=== PATIENT | female | born 1980 | race African-American/Black ===

== ENCOUNTER 2017-08-15 13:42 | Emergency (ER) | payer MEDICAID ==
[~2017-08-15] VITALS: Ht 154.9 cm; Wt 78.9 kg
[2017-08-15] MEDS ORDERED: NOVOLIN 70100 UNIT/1 SUBQ (14:07)
--- NOTE | 2017-08-15 14:34 | Emergency Room Report ---
History of Present Illness General Chief Complaint: Dizziness Source: Patient Present Illness HPI 37-year-old female known insulin-dependent diabetic presents with weakness and dizziness for one day patient noncompliant with insulin and metformin Patient endorsed only weakness to our and on triage however to me patient complains of cough for 2 days, chest pain, abdominal pain - states all these additional complaints started after she had I&D of abscess earlier in week Denies vomiting, diarrhea, fever or chills Allergies: Coded Allergies: No Known Allergies (Unverified , 08/15/17) Patient History Past Medical History: DM Past Surgical History: none Pertinent Family History: none Social History: Denies: smoking, alcohol use, drug use Now: No Immunizations: UTD Reviewed Nursing Documentation: PMH: Agreed, PSxH: Agreed Nursing Documentation-PMH Past Medical History: No History, Except For Hx Diabetes: Yes Review of Systems All Other Systems: negative except mentioned in HPI Physical Exam Vital Signs Date Time Temp Pulse Resp B/P (MAP) Pulse Ox O2 Delivery O2 Flow Rate FiO2 08/15/17 13:41 98.2 100 16 107/74 98 Room Air Sp02 EP Interpretation: reviewed, normal General Appearance: normal inspection, well appearing, no apparent distress, alert, GCS 15, non-toxic, obese, other - well appearing, texting on phone Head: normocephalic, atraumatic Eyes: bilateral eye PERRL, bilateral eye EOMI ENT: normal ENT inspection, hearing grossly normal, normal pharynx, no angioedema, normal voice, TMs + canals normal, uvula midline, moist mucus membranes Neck: normal inspection, full range of motion, supple, thyroid normal, no meningismus, no bony tend Respiratory: normal inspection, lungs clear, normal breath sounds, no rhonchi, no respiratory distress, no retraction, no accessory muscle use, no wheezing, speaking full sentences Cardiovascular #1: regular rate, rhythm, no edema, no JVD, normal capillary refill Gastrointestinal: normal inspection, normal bowel sounds, non tender, soft, no mass, no peritonitis, non-distended, no guarding, no hernia, no pulsatile mass Genitourinary: no CVA tenderness Musculoskeletal: normal inspection, back normal, normal range of motion, no calf tenderness, pelvis stable, Eliud's Sign negative Neurologic: normal inspection, alert, oriented x3, responsive, turbine mechanic III-XII nml as tested, motor strength/tone normal, cerebellar normal, normal gait, speech normal Psychiatric: normal inspection, judgement/insight normal, mood/affect normal, no suicidal/homicidal ideation, no delusions Skin: normal inspection, normal color, no rash Lymphatic: normal inspection, no adenopathy Medical Decision Making Diagnostic Impression: Primary Impression: Weakness Additional Impression: Hyperglycemia ER Course Weakness likely due to hyperglycemia, noncompliant on medications Lungs are clear to auscultation, - cough likely due to chronic smoking. No history of asthma or COPD Abdomen focally nontender Tolerating by mouth, well-appearing ABG does not show acidosis. Only minimal AG. K normal Unlikely DKA No metabolic abnormalities, glucose decrease after insulin and fluid Patient states she has enough DM meds at home UA with some baceria but clear on gross exam and patient asymptomatic. Not warranting Tx at this time DC home ER course: Patient has remained stable during ED stay. Patient is to be discharged to home. Patient is instructed to follow up with their primary care doctor within 5 days. Strict return precautions discussed with patient such as fever, chills, worsening/severe pain, nausea, vomiting, which may indicate severe illness. Patient verbalizes understanding and agrees with plan. Please note that this Emergency Department Report was dictated using [place] [employer] machine operator technology software, occasionally this can lead to erroneous entry secondary to interpretation by the dictation equipment EKG Diagnostic Results Rate: normal Rhythm: NSR ST Segments: no acute changes ASA given to the pt in ED: No Rhythm Strip Diag. Results EP Interpretation: yes Rate: 85 Rhythm: NSR, no PVC's, no ectopy Last Vital Signs Date Time Temp Pulse Resp B/P (MAP) Pulse Ox O2 Delivery O2 Flow Rate FiO2 08/15/17 13:41 98.2 100 16 107/74 98 Room Air Status: improved Disposition: HOME, SELF-CARE Referrals: [facility],REFERRING (PCP) LORENZO ROMAN M.D. Aug 15, 2017 14:34
[2017-08-15 14:41] VITALS: BP 107/74
[2017-08-15 14:52] LABS: EOSINOPHILS % (AUTO) 1.8 % (0.0-3.0); LYMPHOCYTES % (AUTO) 26.9 % (20.0-45.0); MEAN CORPUSCULAR HEMOGLOBIN 27.1 PG (27.0-31.0); MEAN CORPUSCULAR HGB CONC 31.9 G/DL (32.0-36.0); MEAN CORPUSCULAR VOLUME 85 FL (80-99); MEAN PLATELET VOLUME 7.2 FL (6.5-10.1); MONOCYTES % (AUTO) 6.5 % (1.0-10.0); NEUTROPHILS % (AUTO) 63.8 % (45.0-75.0); PLATELET COUNT 274 K/UL (150-450); RED BLOOD COUNT 4.96 M/UL (4.20-5.40); RED CELL DISTRIBUTION WIDTH 11.5 % (11.6-14.8); WHITE BLOOD COUNT 13.2 K/UL (4.8-10.8)
[2017-08-15 14:54] LABS: ANION GAP 15 mmol/L (5-15); CALCIUM 8.4 MG/DL (8.5-10.1); CARBON DIOXIDE 20 MMOL/L (21-32); CHLORIDE 95 MMOL/L (98-107); CREATININE 0.9 MG/DL (0.55-1.30); GLOMERULAR FILTRATION RATE > 60 mL/min (>60); POTASSIUM 3.7 MMOL/L (3.5-5.1); SODIUM 130 MMOL/L (136-145)
[2017-08-15 15:00] LABS: ALANINE AMINOTRANSFERASE 14 U/L (12-78); ALBUMIN/GLOBULIN RATIO 0.5 (1.0-2.7); ASPARTATE AMINO TRANSFERASE 15 U/L (15-37); TOTAL PROTEIN 8.6 G/DL (6.4-8.2)
[2017-08-15 15:27] LABS: APPEARANCE,URINE CLEAR; KETONES,URINE 4+ (NEGATIVE); LEUKOCYTE ESTERASE ,URINE 1+ (NEGATIVE); NITRITE,URINE NEGATIVE (NEGATIVE); PH,URINE 5 (4.5-8.0); PROTEIN,URINE 2+ (NEGATIVE); UROBILINOGEN,URINE 4 MG/DL (0.0-1.0)
[2017-08-15 15:38] LABS: ABG ALLEN TEST POSITIVE; ABG PCO2 29.4 mmHg (35.0-45.0)
[2017-08-15 15:49] LABS: BACTERIA,URINE FEW /HPF; CALCIUM OXALATE CRYSTALS,UR MANY /LPF; ICTOTEST NEGATIVE; SQUAMOUS EPITHELIAL CELL,UR OCCASIONAL /LPF (NONE/OCC)
[2017-08-15 16:43] VITALS: BP 105/82
[2017-08-15] MEDS ORDERED: DIPHENHYDRAMINE25 M1 ORAL (17:59)
[2017-08-15] MEDS ORDERED: FLONASE ALLERG9.9 ML NS (17:59)
--- NOTE | 2017-08-17 15:09 | Cardiology Report ---
APPROVED REPORT EKG Measurement Heart [id number] Sinus tachycardia Otherwise normal ECG
== END 2017-08-15 16:46 | disposition home or self-care (01) ==
LOC: EDBD 13:42 → EMR 13:59
DX: R53.1 Weakness (principal); E11.65 Type 2 diabetes mellitus with hyperglycemia; Z91.14 Patient's other noncompliance with medication regimen; R05 Cough
CPT/HCPCS: 36415; 36600; 80053; 81003; 81025; 82009; 82803; 85025; 93005; 96361; 96374; 99284; J1815

== ENCOUNTER 2017-08-15 17:22 | Emergency (ER) | payer MEDICAID ==
[~2017-08-15] VITALS: Ht 154.9 cm; Wt 78.9 kg
[~2017-08-15 17:22] MED LIST: NOVOLIN 70100 UNIT/1 SUBQ
[2017-08-15 17:30] VITALS: BP 105/50
[2017-08-15] MEDS ORDERED: Bacitracin Oint UD TOPIC ONE (17:45)
[2017-08-15] MEDS ORDERED: DIPHENHYDRAMINE25 M1 ORAL (17:59)
[2017-08-15] MEDS ORDERED: FLONASE ALLERG9.9 ML NS (17:59)
[2017-08-15 18:04] VITALS: BP 105/50
--- NOTE | 2017-08-15 22:29 | Emergency Room Report ---
History of Present Illness General Chief Complaint: General Complaint Source: Patient Present Illness HPI The patient is a 37-year-old female who was just discharged presenting for more complaints. She states that she has been having cough and nasal congestion and also has an abscess on her back that was incised and drained at another facility. She would like a new dressing. The symptoms have been ongoing for the past 2 weeks. She admits to having allergies to environments As well as asthma. She denies other symptoms including fever, chills, shortness of breath Allergies: Coded Allergies: No Known Allergies (Unverified , 08/15/17) Patient History Past Medical History: see triage record Pertinent Family History: none Now: No Reviewed Nursing Documentation: PMH: Agreed, PSxH: Agreed Nursing Documentation-PMH Past Medical History: No History, Except For Hx Diabetes: Yes Review of Systems All Other Systems: negative except mentioned in HPI Physical Exam Vital Signs Date Time Temp Pulse Resp B/P (MAP) Pulse Ox O2 Delivery O2 Flow Rate FiO2 08/15/17 17:25 97.9 103 20 105/50 96 Room Air Sp02 EP Interpretation: reviewed, normal General Appearance: no apparent distress, alert, GCS 15, non-toxic Head: normocephalic, atraumatic Eyes: bilateral eye normal inspection, bilateral eye PERRL ENT: hearing grossly normal, normal pharynx, no angioedema, normal voice, nasal congestion Neck: full range of motion, supple/symm/no masses Musculoskeletal: back normal, gait/station normal, normal range of motion, non- tender Neurologic: alert, oriented x3, responsive, motor strength/tone normal, sensory intact, speech normal Psychiatric: judgement/insight normal, memory normal, mood/affect normal, no suicidal/homicidal ideation Skin: other - Mid upper back has incision site from I&D of abscess. Minimal yellow discharge Medical Decision Making PA Attestation Dr. Marshall is my supervising physician. Patient management was discussed with my supervising physician Diagnostic Impression: Primary Impression: Acute rhinitis Qualified Codes: J00 - Acute nasopharyngitis [common cold] ER Course The patient is a 37-year-old female presenting for nasal congestion and cough Differential diagnosis include but not limited to rhinitis, sinusitis, pharyngitis, sinusitis, AOM, bronchitis, PNA PE: Afebrile. NAD HEENT exam reveals bilateral edema to nasal turbinates as well as erythema and nasal congestion. Otherwise unremarkable The previously incised and drained abscess of the mid upper back appears to be healing appropriately. There is mild yellow discharge. Wound is cleaned and new dressing applied. The patient will continue taking her antibiotics as were prescribed. She is discharged with prescription for Flonase and benadryl. ER precautions are given Last Vital Signs Date Time Temp Pulse Resp B/P (MAP) Pulse Ox O2 Delivery O2 Flow Rate FiO2 08/15/17 18:04 97.9 82 20 105/50 96 Room Air Status: improved Disposition: HOME, SELF-CARE Condition: Improved Scripts Diphenhydramine Hcl* (DIPHENHYDRAMINE HCL*) 25 Mg Capsule 25 MG ORAL Q6H Y for Itching, #30 CAP 0 Refills Prov: CHAI KRAMER 08/15/17 Fluticasone Propionate (Flonase Allergy Relief) 9.9 Ml [place].susp 1 SPRAYS NS DAILY, #10 ML Prov: CHAI KRAMER 08/15/17 Patient Instructions: Allergic Rhinitis Additional Instructions: I discussed my findings with the patient. All questions and concerns have been answered. Treatment and medication compliance have been addressed. I advised the patient that they need to follow up with PMD in 3-5 days. Return to ED if symptoms worsen, new symptoms arise, or if needed for any reason. Patient verbalized understanding of discharge instructions. CHAI KRAMER Aug 15, 2017 22:29
== END 2017-08-15 18:05 | disposition home or self-care (01) ==
LOC: EMR 17:35
DX: J00 Acute nasopharyngitis [common cold] (principal); E11.9 Type 2 diabetes mellitus without complications
CPT/HCPCS: 99283

== ENCOUNTER 2018-03-20 23:55 | Emergency (ER) | payer MEDICAID ==
[~2018-03-20] VITALS: Ht 154.9 cm; Wt 73.5 kg
[~2018-03-20 23:55] MED LIST changes: +DIPHENHYDRAMINE25 M1 ORAL; +FLONASE ALLERG9.9 ML NS
[2018-03-21 00:45] LABS: APPEARANCE,URINE CLEAR; BILIRUBIN, URINE NEGATIVE (NEGATIVE); GLUCOSE, URINE (UA) NEGATIVE (NEGATIVE); KETONES,URINE NEGATIVE (NEGATIVE); LEUKOCYTE ESTERASE ,URINE 1+ (NEGATIVE); NITRITE,URINE NEGATIVE (NEGATIVE); PH,URINE 5 (4.5-8.0); PROTEIN,URINE 2+ (NEGATIVE); UROBILINOGEN,URINE NORMAL MG/DL (0.0-1.0)
[2018-03-21] MEDS ORDERED: Albuterol/Ipratropium 3ml neb HHN ONE (00:45)
[2018-03-21 00:48] LABS: COLOR,URINE YELLOW
--- NOTE | 2018-03-21 01:01 | Diagnostic Imaging Report ---
EXAM: CT Head Without Intravenous Contrast CLINICAL HISTORY: PAIN, headaches TECHNIQUE: Axial computed tomography images of the head/brain without intravenous contrast. CTDI is 0.15, 70.38 mGy and DLP is 1428 mGy-cm. One or more of the following dose reduction techniques were used: automated exposure control, adjustment of the mA and/or kV according to patient size, use of iterative reconstruction technique. COMPARISON: No relevant prior studies available. FINDINGS: Brain: Unremarkable. No hemorrhage. No significant white matter disease. No edema. Ventricles: Unremarkable. No ventriculomegaly. Bones/joints: Unremarkable. No acute fracture. Soft tissues: Unremarkable. Sinuses: Focal areas of mild mucosal thickening in the paranasal sinuses. Mastoid air cells: Unremarkable as visualized. No mastoid effusion. IMPRESSION: No CT evidence for acute intracranial abnormality.
[2018-03-21] MEDS ORDERED: IBUPROFEN600 MG ORAL (01:27)
[2018-03-21] MEDS ORDERED: ALBUTEROL SULF8.5 GM INH (01:29)
[2018-03-21 01:30] VITALS: BP 161/76
[2018-03-21 01:35] VITALS: BP 161/76
--- NOTE | 2018-03-21 02:36 | Diagnostic Imaging Report ---
EXAM: XR Chest, 1 View CLINICAL HISTORY: SOB TECHNIQUE: Frontal view of the chest. COMPARISON: No relevant prior studies available. FINDINGS: Lungs: No definite plain film evidence for focal infiltrate. Pleural space: No plain film evidence for pneumothorax. Heart: Mild prominence of the cardiac silhouette which may at least partly be related to technique. Mediastinum: Unremarkable. Bones/joints: Unremarkable. IMPRESSION: Mild prominence of the cardiac silhouette which may at least partly be related to technique.
--- NOTE | 2018-03-21 06:00 | Emergency Room Report ---
History of Present Illness General Chief Complaint: Headache Source: Patient, EMS Present Illness HPI Patient is a 37-year-old female presented after increased headache as well as chest discomfort. Patient gradual onset of symptoms. Patient had reportedly prior history of diabetes as well as smoking. She denies recent trauma. Patient states she's had similar headaches in the past. Patient denies any visual changes. She reports having prior history of smoking as well as diabetes. She denies any fever. Allergies: Coded Allergies: No Known Allergies (Unverified , 08/15/17) Patient History Last Menstrual Period: february 19 Now: No Reviewed Nursing Documentation: PMH: Agreed; PSxH: Agreed Nursing Documentation-PMH Hx Diabetes: Yes Review of Systems All Other Systems: negative except mentioned in HPI Physical Exam Vital Signs Date Time Temp Pulse Resp B/P (MAP) Pulse Ox O2 Delivery O2 Flow Rate FiO2 03/20/18 23:59 98.8 82 18 136/84 98 Room Air 98.8 03/21/18 01:17 21 Sp02 EP Interpretation: reviewed, normal General Appearance: normal inspection, well appearing, no apparent distress, alert, GCS 15, non-toxic Head: atraumatic ENT: normal ENT inspection, hearing grossly normal, normal voice Neck: normal inspection, full range of motion, supple, no bony tend Respiratory: normal inspection, lungs clear, normal breath sounds, no respiratory distress, no retraction, no wheezing Cardiovascular #1: regular rate, rhythm, no edema Gastrointestinal: normal inspection, normal bowel sounds, non tender, soft, no guarding, no hernia Genitourinary: no CVA tenderness Musculoskeletal: normal inspection, back normal, normal range of motion Neurologic: normal inspection, alert, responsive, speech normal Psychiatric: normal inspection, judgement/insight normal, mood/affect normal Skin: normal inspection, normal color, no rash Medical Decision Making Diagnostic Impression: Primary Impression: Headache Additional Impression: COPD exacerbation ER Course Patient presented for headache. Differential diagnoses included but was not limited to skull fracture, subarachnoid hemorrhage, meningitis, aneurysm, mass lesion, intracranial hemorrhage. The CT the head read by radiology showed no evidence of acute hemorrhage or CVA. The patient was given breathing treatment. The patient is given prescription for ibuprofen as well as albuterol.The patient's urine drug screen was noted be positive for amphetamine.The patient was noted to have improvement in her wheezing after breathing treatment. The patient was advised cessation of smoking as well as drug use. The patient is advised to follow up with primary care doctor in 1-2 days. Patient is advised to return if any worsening condition or if any changes in status that are concerning. This report is dictated with [employer] communications specialist software which may occasionally lead to discrepancies related to use of this software. Labs Test 03/21/18 00:15 Urine Color Yellow Urine Appearance Clear Urine pH 5 (4.5-8.0) Urine Specific [place] 1.020 (1.005-1.035) Urine Protein 2+ (NEGATIVE) Urine Glucose (UA) Negative (NEGATIVE) Urine Ketones Negative (NEGATIVE) Urine Occult Blood Negative (NEGATIVE) Urine Nitrite Negative (NEGATIVE) Urine Bilirubin Negative (NEGATIVE) Urine Urobilinogen Normal MG/DL (0.0-1.0) Urine Leukocyte Esterase 1+ (NEGATIVE) Urine RBC 0-2 /HPF (0 - 2) Urine WBC 2-4 /HPF (0 - 2) Urine Squamous Epithelial Cells Few /LPF (NONE/OCC) Urine Bacteria Few /HPF (NONE) Urine HCG, Qualitative Negative (NEGATIVE) Urine Opiates Screen Negative (NEGATIVE) Urine Barbiturates Screen Negative (NEGATIVE) Phencyclidine (PCP) Screen Negative (NEGATIVE) Urine Amphetamines Screen Positive (NEGATIVE) Urine Benzodiazepines Screen Negative (NEGATIVE) Urine Cocaine Screen Negative (NEGATIVE) Urine Marijuana (THC) Screen Negative (NEGATIVE) Chest X-Ray Diagnostic Results Chest X-Ray Diagnostic Results : Chest X-Ray Ordered: Yes # of Views/Limited/Complete: 1 View Indication: Chest Pain EP Interpretation: Yes Interpretation: no consolidation Impression: No acute disease Electronically Signed by: Electronically signed by Dr. Kenneth Hough M.D. Last Vital Signs Date Time Temp Pulse Resp B/P (MAP) Pulse Ox O2 Delivery O2 Flow Rate FiO2 03/21/18 01:35 98.3 98 20 161/76 96 Room Air 21 98.3 Status: improved Disposition: HOME, SELF-CARE Condition: Improved Scripts Albuterol Sulfate* (ALBUTEROL SULFATE MDI*) 8.5 Gm Hfa.aer.ad 2 PUFF INH Q4H PRN for cough/wheezing, #1 EA 0 Refills Prov: Kenneth Hough MD 03/21/18 Ibuprofen* (MOTRIN*) 600 Mg Tablet 600 MG ORAL Q8H PRN for For Pain, #30 TAB 0 Refills Prov: Kenneth Hough MD 03/21/18 Patient Instructions: General Headache Without Cause Kenneth Hough MD Mar 21, 2018 06:00
== END 2018-03-21 01:35 | disposition home or self-care (01) ==
LOC: EDBD 23:55 → EDUNIT# 23:55 → EDSEX 23:55 → EMR 03-21 00:30
DX: R51 Headache (principal); J44.1 Chronic obstructive pulmonary disease with (acute) exacerbation; E11.9 Type 2 diabetes mellitus without complications
CPT/HCPCS: 70450; 71045; 80307; 81003; 81025; 94640; 94664; 99284; J7620

== ENCOUNTER 2019-08-02 20:12 | Emergency (ER) | payer MEDICAID ==
[~2019-08-02] VITALS: Ht 175.3 cm; Wt 99.8 kg
[~2019-08-02 20:12] MED LIST changes: +ALBUTEROL SULF8.5 GM INH; +IBUPROFEN600 MG ORAL
[2019-08-02 20:15] VITALS: BP 115/65
--- NOTE | 2019-08-02 20:15 | NUR ---
ED Nurse Note: Pt brought in by ambulance tasneem ra [address]/o back pain no truama bs 347. Pt is semi-coperative and restless. No skin issues noted. Pt is unable to sit still. Pt aaox3, vss, no acute distress.
--- NOTE | 2019-08-02 20:31 | NUR ---
ED Nurse Note: Blood work sent to lab.
[2019-08-02 20:40] LABS: EOSINOPHILS % (AUTO) 2.4 % (0.0-3.0); HEMATOCRIT 36.1 % (37.0-47.0); HEMOGLOBIN 11.4 G/DL (12.0-16.0); LYMPHOCYTES % (AUTO) 29.6 % (20.0-45.0); MEAN CORPUSCULAR VOLUME 69 FL (80-99); MONOCYTES % (AUTO) 8.8 % (1.0-10.0); NEUTROPHILS % (AUTO) 58.2 % (45.0-75.0); PLATELET COUNT 297 K/UL (150-450); RED BLOOD COUNT 5.22 M/UL (4.20-5.40); RED CELL DISTRIBUTION WIDTH 12.7 % (11.6-14.8); WHITE BLOOD COUNT 10.1 K/UL (4.8-10.8)
--- NOTE | 2019-08-02 20:54 | NUR ---
ED Nurse Note: Pt acting odd and constantly moving while in bed.
--- NOTE | 2019-08-02 20:56 | NUR ---
ED Nurse Note: Urine sent to lab.
[2019-08-02 21:09] LABS: ANION GAP 9 mmol/L (5-15); BLOOD UREA NITROGEN 31 mg/dL (7-18); CALCIUM 8.5 MG/DL (8.5-10.1); CARBON DIOXIDE 27 MMOL/L (21-32); CHLORIDE 98 MMOL/L (98-107); CREATININE 0.8 MG/DL (0.55-1.30); POTASSIUM 3.4 MMOL/L (3.5-5.1); SODIUM 134 MMOL/L (136-145)
[2019-08-02 21:10] LABS: APPEARANCE,URINE CLEAR; BILIRUBIN, URINE NEGATIVE (NEGATIVE); COLOR,URINE PALE YELLOW; GLUCOSE, URINE (UA) 4+ (NEGATIVE); KETONES,URINE 1+ (NEGATIVE); LEUKOCYTE ESTERASE ,URINE NEGATIVE (NEGATIVE); NITRITE,URINE NEGATIVE (NEGATIVE); PH,URINE 6 (4.5-8.0); PROTEIN,URINE 1+ (NEGATIVE); UROBILINOGEN,URINE 1 MG/DL (0.0-1.0)
[2019-08-02 21:14] LABS: ALANINE AMINOTRANSFERASE 20 U/L (12-78); ALBUMIN 3.3 G/DL (3.4-5.0); ALBUMIN/GLOBULIN RATIO 0.8 (1.0-2.7); ALKALINE PHOSPHATASE 177 U/L (46-116); ASPARTATE AMINO TRANSFERASE 7 U/L (15-37); BILIRUBIN,TOTAL 0.2 MG/DL (0.2-1.0)
--- NOTE | 2019-08-02 21:39 | NUR ---
ED Nurse Note: Pt refused the IV fluid. IV DC per MD request.
[2019-08-02 22:30] VITALS: BP 121/70
--- NOTE | 2019-08-02 22:30 | NUR ---
HAND-OFF: Report given to BREANNE TABOR RN.
--- NOTE | 2019-08-02 22:30 | NUR ---
ED Nurse Note: RECEIVED PATIENT FROM [facility]. PATIENT MOVED TO [facility] FROM [facility]. PATIENT SLEEPING WITH NO ACUTE DISTRESS. VSS. RESPIRATIONS EVEN AND UNLABORED.
--- NOTE | 2019-08-03 | NUR ---
ED Nurse Note: PATIENT REMAINS SLEEPING. RESPIRATIONS EVEN AND UNLABORED.
[2019-08-03 02:00] VITALS: BP 116/69
--- NOTE | 2019-08-03 02:00 | NUR ---
ED Nurse Note: PATIENT SLEEPING IN BED WITH NO ACUTE DISTRESS. VSS. REPOSITIONED FOR COMFORT. PROVIDED WITH WARM BLANKETS.
--- NOTE | 2019-08-03 04:00 | NUR ---
ED Nurse Note: PATIENT SLEEPING WITH NO ACUTE DISTRESS. RESPIRATIONS EVEN AND UNLABORED.
--- NOTE | 2019-08-03 04:32 | Emergency Room Report ---
History of Present Illness General Chief Complaint: Pain Source: Patient, EMS Present Illness HPI 38-year-old female presents ED for evaluation. Brought in by EMS. Reportedly complaining of back pain from the streets. Patient denies back pain. Patient is agitated and erratic during assessment. Admits to drug use. Denies chest pain or shortness of breath. Denies abdominal pain. No other aggravating relieving factors. Denies any other associated symptoms Allergies: Coded Allergies: No Known Allergies (Unverified , 08/15/17) Patient History Past Medical History: DM Past Surgical History: none Pertinent Family History: none Social History: Reports: drug use; Denies: smoking, alcohol use Now: No Immunizations: UTD Reviewed Nursing Documentation: PMH: Agreed; PSxH: Agreed Nursing Documentation-PMH Past Medical History: No History, Except For Hx Diabetes: Yes Review of Systems All Other Systems: negative except mentioned in HPI Physical Exam Vital Signs Date Time Temp Pulse Resp B/P (MAP) Pulse Ox O2 Delivery O2 Flow Rate FiO2 08/02/19 20:10 98.8 84 20 124/67 (86) 98 Room Air Sp02 EP Interpretation: reviewed, normal General Appearance: alert, GCS 15, non-toxic, other - agitated Head: normocephalic, atraumatic Eyes: bilateral eye normal inspection, bilateral eye PERRL ENT: hearing grossly normal, normal pharynx, no angioedema, normal voice Neck: full range of motion, supple/symm/no masses Respiratory: chest non-tender, lungs clear, normal breath sounds, speaking full sentences Cardiovascular #1: regular rate, rhythm, no edema Cardiovascular #2: 2+ carotid (R), 2+ carotid (L), 2+ radial (R), 2+ radial (L) , 2+ dorsalis pedis (R), 2+ dorsalis pedis (L) Gastrointestinal: normal bowel sounds, non tender, soft, non-distended, no guarding, no rebound Rectal: deferred Genitourinary: normal inspection, no CVA tenderness Musculoskeletal: back normal, normal range of motion, gait/station normal, non- tender Neurologic: alert, motor strength/tone normal, oriented x3, sensory intact, responsive, speech normal Psychiatric: judgement/insight normal, memory normal, no suicidal/homicidal ideation, other - agitated Reflexes: 3+ bicep (R), 3+ bicep (L), 3+ tricep (R), 3+ tricep (L), 3+ knee (R) , 3+ knee (L) Lymphatic: no adenopathy Medical Decision Making Diagnostic Impression: Primary Impression: Substance abuse Additional Impression: Hyperglycemia ER Course Hospital Course 38 yo F presents with agitated behavior. brought in by EMS Differential diagnoses include: Psychosis, EtOH, drug abuse Clinical course patient placed on stretcher. After initial history and physical ordered labs, IV fluids Labs reviewed- glucose > 300 no evidence of DKA, no leukocytosis, hemoglobin/ hematocrit stable, tox panel + amphetamines Patient received IV hydration. Allowed to rest. Vitals stable during ED course. Is now awake alert oriented times 3 in the morning. Remains somewhat agitated. Will discharge to home. Started yelling and screaming as we attempted to remove her hospital band. i. I feel this is a highly complex case requiring extensive working including EKG/Rhythm strip, Xray/CT/US, Blood/urine lab work, repeat exams while in ED, and administration of strong opiates/narcotics for pain control, admission to hospital or close patient follow up. Diagnosis - substance abuse, hyperglycemia Stable and discharged to home. Followup with PMD. Return to ED if symptoms recur or worsen Labs Test 08/02/19 20:29 08/02/19 20:47 White Blood Count 10.1 K/UL (4.8-10.8) Red Blood Count 5.22 M/UL (4.20-5.40) Hemoglobin 11.4 G/DL (12.0-16.0) Hematocrit 36.1 % (37.0-47.0) Mean Corpuscular Volume 69 FL (80-99) Mean Corpuscular Hemoglobin 21.9 PG (27.0-31.0) Mean Corpuscular Hemoglobin Concent 31.6 G/DL (32.0-36.0) Red Cell Distribution Width 12.7 % (11.6-14.8) Platelet Count 297 K/UL (150-450) Mean Platelet Volume 6.0 FL (6.5-10.1) Neutrophils (%) (Auto) 58.2 % (45.0-75.0) Lymphocytes (%) (Auto) 29.6 % (20.0-45.0) Monocytes (%) (Auto) 8.8 % (1.0-10.0) Eosinophils (%) (Auto) 2.4 % (0.0-3.0) Basophils (%) (Auto) 1.0 % (0.0-2.0) Sodium Level 134 MMOL/L (136-145) Potassium Level 3.4 MMOL/L (3.5-5.1) Chloride Level 98 MMOL/L (98-107) Carbon Dioxide Level 27 MMOL/L (21-32) Anion Gap 9 mmol/L (5-15) Blood Urea Nitrogen 31 mg/dL (7-18) Creatinine 0.8 MG/DL (0.55-1.30) Estimat Glomerular Filtration Rate > 60 mL/min (>60) Glucose Level 348 MG/DL (74-106) Calcium Level 8.5 MG/DL (8.5-10.1) Total Bilirubin 0.2 MG/DL (0.2-1.0) Aspartate Amino Transf (AST/SGOT) 7 U/L (15-37) Alanine Aminotransferase (ALT/SGPT) 20 U/L (12-78) Alkaline Phosphatase 177 U/L (46-116) Total Protein 7.7 G/DL (6.4-8.2) Albumin 3.3 G/DL (3.4-5.0) Globulin 4.4 g/dL Albumin/Globulin Ratio 0.8 (1.0-2.7) Urine Color Pale yellow Urine Appearance Clear Urine pH 6 (4.5-8.0) Urine Specific [place] 1.015 (1.005-1.035) Urine Protein 1+ (NEGATIVE) Urine Glucose (UA) 4+ (NEGATIVE) Urine Ketones 1+ (NEGATIVE) Urine Blood 4+ (NEGATIVE) Urine Nitrite Negative (NEGATIVE) Urine Bilirubin Negative (NEGATIVE) Urine Urobilinogen 1 MG/DL (0.0-1.0) Urine Leukocyte Esterase Negative (NEGATIVE) Urine RBC 0-2 /HPF (0 - 2) Urine WBC 0-2 /HPF (0 - 2) Urine Squamous Epithelial Cells Few /LPF (NONE/OCC) Urine Bacteria Occasional /HPF (NONE) Urine HCG, Qualitative Negative (NEGATIVE) Urine Opiates Screen Negative (NEGATIVE) Urine Barbiturates Screen Negative (NEGATIVE) Phencyclidine (PCP) Screen Negative (NEGATIVE) Urine Amphetamines Screen Positive (NEGATIVE) Urine Benzodiazepines Screen Negative (NEGATIVE) Urine Cocaine Screen Negative (NEGATIVE) Urine Marijuana (THC) Screen Negative (NEGATIVE) Last Vital Signs Date Time Temp Pulse Resp B/P (MAP) Pulse Ox O2 Delivery O2 Flow Rate FiO2 08/02/19 20:15 97.4 16 115/65 98 Room Air 08/02/19 20:10 84 Status: improved Disposition: HOME, SELF-CARE Condition: Stable Referrals: NON PHYSICIAN (PCP) Reji Antunez MD Aug 03, 2019 04:32
[2019-08-03 05:00] VITALS: BP 118/71
[2019-08-03 05:29] VITALS: BP 118/71
--- NOTE | 2019-08-03 05:30 | NUR ---
ER DISCHARGE NOTE: Patient is cleared to be discharged per ERMD, pt is aox4, on room air, with stable vital signs. pt was given dc and prescription instructions, pt was able to verbalize understanding, pt id band and iv site removed without complications. pt is able to ambulate with steady gait. pt took all belongings.
== END 2019-08-03 05:31 | disposition home or self-care (01) ==
LOC: EDBD 20:12 → EMR 23:00
DX: F19.10 Other psychoactive substance abuse, uncomplicated (principal); E11.65 Type 2 diabetes mellitus with hyperglycemia; M54.9 Dorsalgia, unspecified
CPT/HCPCS: 36415; 80053; 80307; 81003; 81025; 85025; 96360; Z7502; 99284